=== PATIENT | female | born 1955 | race Caucasian/White ===

== ENCOUNTER 2017-01-07 10:46 | Emergency (ER) | payer MEDICARE, BC, OTHER ==
[~2017-01-07 10:46] MED LIST: BENTYL10 MG PO; PEPCID AC20 MG PO; ZOFRAN ODT4 MG PO
== END 2017-01-07 10:55 | disposition home or self-care (01) ==
LOC: CED 10:46
DX: S29.012A Strain of muscle and tendon of back wall of thorax, initial encounter (principal); I10 Essential (primary) hypertension; F32.9 Major depressive disorder, single episode, unspecified; G47.33 Obstructive sleep apnea (adult) (pediatric); F17.210 Nicotine dependence, cigarettes, uncomplicated; X50.0XXA Overexertion from strenuous movement or load, initial encounter
CPT/HCPCS: 96372; 99283; J1885